=== PATIENT | female | born 1995 | race Caucasian/White ===

== ENCOUNTER 2017-10-29 11:25 | Emergency (ER) | payer BC ==
--- NOTE | 2017-10-29 11:46 | EDM.PDOC ---
ED HPI GENERAL MEDICAL PROBLEM - General Chief Complaint: Allergic Reaction Stated Complaint: RASH Time Seen by Provider: 10/29/17 11:33 Source of Information: Reports: Patient History Limitations: Reports: No Limitations - History of Present Illness INITIAL COMMENTS - FREE TEXT/NARRATIVE: History of present illness: []Patient ate jambalaya last night which she made a home and has had several times in the past but this time started having swelling and itchiness in her throat and swelling in her ears. Symptoms stopped immediately after stopping her meal. She did not take any Benadryl or other allergy meds at home. This morning healing tired and having residual sensation of a lump in her throat. Have any difficulty swallowing, no change in her voice or difficulty breathing. Review of systems: As per history of present illness and below otherwise all systems reviewed and negative. Past medical history: As per history of present illness and as reviewed below otherwise noncontributory. Surgical history: As per history of present illness and as reviewed below otherwise noncontributory. Social history: No reported history of drug or alcohol abuse. Family history: As per history of present illness and as reviewed below otherwise noncontributory. Physical exam: General: Well developed, well nourished in NAD HEENT: Atraumatic, normocephalic, pupils reactive, negative for conjunctival pallor or scleral icterus, mucous membranes moist, throat clear, neck supple, nontender, trachea midline. No edema in the oral pharynx, no stridor Lungs: Clear to auscultation, breath sounds equal bilaterally, chest nontender. No wheezing Heart: S1S2, regular, negative for clicks, rubs, or JVD. Abdomen: Soft, nondistended, nontender. Negative for masses or hepatosplenomegaly. Negative for costovertebral tenderness. Pelvis: Stable nontender. Genitourinary: Deferred. Rectal: Deferred. Extremities: Atraumatic, negative for cords or calf pain. Neurovascular unremarkable. No noted rashes Neuro: Awake, alert, oriented. Cranial nerves II through XII unremarkable. Cerebellum unremarkable. Motor and sensory unremarkable throughout. Exam nonfocal. Diagnostics: []None Therapeutics: []Declined Benadryl states she has some at home and will take someone write when she gets home Impression: []Allergic reaction to an unknown ingredient in jambalaya Plan: []Benadryl at home and take symptoms recur. Return if any worsening symptoms such as difficulty breathing or swallowing or change in voice occur. Definitive disposition and diagnosis as appropriate pending reevaluation and review of above. - Related Data Allergies Allergy/AdvReac Type Severity Reaction Status Date / Time azithromycin Allergy Hives Verified 10/29/17 11:33 Home Meds: Home Meds Spironolactone 100 mg PO DAILY 10/29/17 [History] Past Medical History HEENT History: Reports: None Cardiovascular History: Reports: None Respiratory History: Reports: None Gastrointestinal History: Reports: None Genitourinary History: Reports: None MEDICAL SCHEDULER History: Reports: None Musculoskeletal History: Reports: None Neurological History: Reports: None Psychiatric History: Reports: None Endocrine/Metabolic History: Reports: None Hematologic History: Reports: None Immunologic History: Reports: None Oncologic (Cancer) History: Reports: None Dermatologic History: Reports: None - Past Surgical History Head Surgeries/Procedures: Reports: None HEENT Surgical History: Reports: Adenoidectomy, Tonsillectomy Cardiovascular Surgical History: Reports: None Respiratory Surgical History: Reports: None GI Surgical History: Reports: None Female Surgical History: Reports: None Neurological Surgical History: Reports: None Musculoskeletal Surgical History: Reports: None Oncologic Surgical History: Reports: None Dermatological Surgical History: Reports: None Social & Family History - Family History Family Medical History: Noncontributory - Tobacco Use Smoking Status *Q: Never Smoker Second Hand Smoke Exposure: No - Caffeine Use Caffeine Use: Reports: None - Recreational Drug Use Recreational Drug Use: No ED ROS ALLERGIC REACTION - Review of Systems Review Of Systems: See Below (See history of present illness) ED EXAM GENERAL NO PERIP PULSE - Physical Exam Exam: See Below (See history of present illness) Course - Vital Signs Last Recorded V/S: Last Vital Signs Temp 97.0 F 10/29/17 11:34 Pulse 71 10/29/17 11:34 Resp 18 10/29/17 11:34 BP 137/104 H 10/29/17 11:34 Pulse Ox 100 10/29/17 11:34 Departure - Departure Time of Disposition: 11:48 Disposition: Home, Self-Care 01 Condition: Good Clinical Impression: Allergic reaction Qualifiers: Encounter type: initial encounter Qualified Code(s): T78.40XA - Allergy, unspecified, initial encounter - Discharge Information Referrals: PCP,None [Primary Care Provider] - Additional Instructions: The following information is given to patients seen in the emergency department who are being discharged to home. This information is to outline your options for follow-up care. We provide all patients seen in our emergency department with a follow-up referral. The need for follow-up, as well as the timing and circumstances, are variable depending upon the specifics of your emergency department visit. If you don't have a primary care physician on staff, we will provide you with a referral. We always advise you to contact your personal physician following an emergency department visit to inform them of the circumstance of the visit and for follow-up with them and/or the need for any referrals to a consulting specialist. The emergency department will also refer you to a specialist when appropriate. This referral assures that you have the opportunity for follow-up care with a specialist. All of these measure are taken in an effort to provide you with optimal care, which includes your follow-up. Under all circumstances we always encourage you to contact your private physician who remains a resource for coordinating your care. When calling for follow-up care, please make the office aware that this follow-up is from your recent emergency room visit. If for any reason you are refused follow-up, please contact the [facility] Emergency Department at and asked to speak to the emergency department charge nurse. Benadryl every 4 hours as needed, you can also take [id number] nondrowsy allergic remedies such as Zyrtec or Claritin. Return if symptoms worsen or change
== END 2017-10-29 12:10 | disposition home or self-care (01) ==
LOC: MW.ED 11:25
DX: T78.1XXA Other adverse food reactions, not elsewhere classified, initial encounter (principal); R22.1 Localized swelling, mass and lump, neck; Z88.1 Allergy status to other antibiotic agents
CPT/HCPCS: 99282; 99283